=== PATIENT | female | born 1985 | race Caucasian/White ===

== ENCOUNTER 2023-11-20 19:19 | Emergency (ER) | payer OTHER, SELFPAY ==
--- NOTE | ~2023-11-20 | US_ITS ---
Pelvic ultrasound. Clinical History: Pelvic pain, torsion Technique: Realtime transabdominal and transvaginal scanning of the pelvis was performed. Color flow Doppler and Doppler spectral analysis were performed. Findings: The uterus is anteverted. The endometrial stripe has a thickness of 10 mm. No focal mass i s identified. The right ovary measures 3.8 x 3.5 x 3.7 cm. No significant right ovarian or adnexal mass is seen. Left ovary measures approximate 7.9 cm in diameter. There is a 7.2 cm simple cyst occupying the bulk of left ovary with very thin rind of tissue spleen around it. No definite evidence for ovarian torsion. There is no evidence of free fluid in the cul de sac. Impression: No definite evidence of torsion. 7.2 cm simple left ovarian cyst. Follow-up exam in 6-8 weeks recommended. Reviewed, dictated and finalized at [facility]. Impression: No definite evidence of torsion. 7.2 cm simple left ovarian cyst. Follow-up exam in 6-8 weeks recommended.
--- NOTE | ~2023-11-20 | CT_ITS ---
EXAMINATION: CT lumbar spine wo con DATE: 11/20/2023 23:17 INDICATION: Back pain. Right sacroiliac joint pain. TECHNIQUE: Computed tomography (CT) of the lumbar spine was performed without intravenous contrast. A utomated exposure control and iterative reconstruction technique were employed. The dose-length produ ct was 1400.46 mGy-cm. COMPARISON: None FINDINGS: Alignment is normal. Minimal likely physiologic anterior wedging at T12 and L1. Vertebral b luke heights are otherwise normal. Disc heights are normal. There is unfused bilateral transverse proc esses at L1. There are also unfused apophyseal centers at the periphery of the superior articular pro cesses bilaterally at T12. Mild to moderate nonuniform joint space narrowing at the bilateral sacroil iac joints with subchondral sclerosis along the iliac sides of both joint spaces. Suggestion of a tin y erosion at the inferior iliac side of the right sacroiliac joint . Incompletely visualized at least 8 cm cystic lesion in the left hemipelvis. The following disc levels are specifically discussed: T11-T12: There is moderate bilateral facet joint osteoarthritis. There is no neural foraminal stenos is. There is no central canal stenosis. T12-L1: There is moderate bilateral facet joint osteoarthritis. There is no neural foraminal stenosis . There is no central canal stenosis. L1-L2: There is moderate bilateral facet joint osteoarthritis. There is no neural foraminal stenosis . There is no central canal stenosis. L2-L3: There is mild bilateral facet joint osteoarthritis. There is no neural foraminal stenosis. Th ere is no central canal stenosis. L3-L4: Right foraminal zone disc protrusion. There is mild bilateral facet joint osteoarthritis. Ther e is altered left and mild to moderate right neural foraminal stenosis. There is minimal central delfino l stenosis. L4-L5: Suggestion of a central disc protrusion. There is moderate bilateral facet joint osteoarthriti s. There is mild bilateral neural foraminal stenosis. There is mild central canal stenosis. L5-S1: Right foraminal zone disc protrusion. There is bilateral facet joint osteoarthritis. There is mild left and moderate right neural foraminal stenosis. There is no central canal stenosis. IMPRESSION: 1. Mild lumbar spondylosis. 2. Mild to moderate joint space. The posterolateral sacralized joints which could relate osteoarthrit is or inflammatory sacroiliitis. 3. Indeterminate at least 8 cm cystic lesion in the left hemipelvis statistically most likely ovarian origin. Recommend pelvic ultrasound for further evaluation. Reviewed, dictated and finalized at [facility]. IMPRESSION: 1. Mild lumbar spondylosis. 2. Mild to moderate joint space. The posterolateral sacralized joints which cou ld relate osteoarthritis or inflammatory sacroiliitis. 3. Indeterminate at least 8 cm cystic lesion in the left hemipelvis statistical ly most likely ovarian origin. Recommend pelvic ultrasound for further evaluati on.
[2023-11-20 19:24] VITALS: BP 141/110; PULSE 98; RESP 18; TEMP 36.8; O2SAT 100
[2023-11-20 20:13] VITALS: BP 123/67; PULSE 86; RESP 18; TEMP 36.4; O2SAT 98
--- NOTE | 2023-11-20 22:06 | ED.BACK ---
HPI - Back Pain/Injury General Chief Complaint: Back Pain/Injury Stated Complaint: R lower back pain Time Seen by Provider: 11/20/23 21:20 History of Present Illness HPI Narrative: 38-year-old female With a reported history of type 2 diabetes and PCOS presents to emergency department for right lower back pain that started this morning. Patient states she felt a tweak in her low back this morning and throughout the day it got worse after she bent over to pick something Up off of the ground. she is reporting pain to her right lower back that is better when she is lying still and worse when she is moving. She denies radicular symptoms, saddle anesthesia, a urinary or bowel incontinence, urinary tension, fever, vomiting, IV drug use, numbness or tingling. Denies injury trauma or back. states the pain makes her feel nauseous. she took Tylenol ibuprofen approximately 6 hours ago with some improvement. LMP approximately 4 weeks ago. Related Data Allergies Allergy/AdvReac Type Severity Reaction Status Date / Time bismuth subsalicylate Allergy Unknown Unknown Verified 06/03/17 07:16 Review of Systems Review of Systems: All systems reviewed & are unremarkable except as noted in HPI and below Exam Narrative: GENERAL: Well-appearing, well-nourished, and in no acute distress. HEAD: Normocephalic, atraumatic. EYES: PERRLA and EOMI. ENT: Nares clear, no rhinorrhea or epistaxis. Mucous membranes moist. NECK: Supple. BACK: No thoracic spinous tenderness, step-offs or deformities. Tenderness to the lumbar spine without crepitus, step-offs or deformities. Tenderness over the right SI. No overlying skin changes. CHEST: Clear to auscultation. No respiratory distress. HEART: Regular rate and rhythm. No murmur heard. Normal peripheral pulses. ABDOMEN: Soft, nontender, nondistended, normal active bowel sounds. No CVA tenderness EXTREMITIES: Normal range of motion. No edema. BLE strength 5/5. Sensation intact throughout. No saddle anesthesia. SKIN: Warm, dry, no rash. NEURO: No focal deficits. Alert and oriented x3 Course Vital Signs Vital signs: Vital Signs Temperature 98.2 F 11/20/23 19:24 Pulse Rate 98 11/20/23 19:24 Respiratory Rate 18 11/20/23 19:24 Blood Pressure 141/110 H 11/20/23 19:24 Pulse Oximetry 100 11/20/23 19:24 Temperature 97.6 F 11/20/23 20:13 Pulse Rate 84 11/21/23 02:09 Respiratory Rate 17 11/21/23 02:09 Blood Pressure 137/71 11/21/23 02:09 Pulse Oximetry 98 11/21/23 02:09 Oxygen Delivery Room Air 11/20/23 20:13 MDM - Back Pain/Injury MDM Narrative Medical decision making narrative: 38-year-old female presents to emergency department for low back pain since this morning. Triage vital significant for hypertension which has since resolved. Otherwise unremarkable. She is afebrile. Exam significant for tenderness to the lumbar spine and the right SI. She is neurovascularly intact. UA with 11-20 RBCs, no hematuria. Her presentation is not consistent with a kidney stone. is negative. CT lumbar spine shows mild lumbar spondylosis and inflammation to the posterior lateral steak grossly a joints which could relate osteoarthritis or inflammatory sacroiliitis. There is also an indeterminate at least 8 cm cystic lesion in the left hemipelvis which is statistically likely of ovarian origin. Workup discussed with the patient. She received IM Toradol, [place], Flexeril and topical lidocaine patch with some improvement. Given size of ovarian cyst, pelvic ultrasound obtained. Patient is requesting to leave AMA prior to ultrasound results. Unfortunately patient left the department prior to receiving her discharge paperwork and a prescription for her NSAIDs, lidocaine patches and flexeril. She did not have a pharmacy in the system so these could not be sent electronically. Lab Data Labs: Lab Results 11/20/23 11/20/23 Range/Units 22:30 22:33
[2023-11-20] MEDS: CYCLOBENZAPRINE HCL 10 MG TABLET PO (22:16)
[2023-11-20] MEDS: LIDOCAINE 5% PATCH 1 PATCH TRANSDERM (22:17)
[2023-11-20 22:35] LABS: BEDSIDEPREGUCG Negative
[2023-11-20 23:11] LABS: Appearance Urine Cloudy (Clear); Bacteria Urine None Seen /hpf; Bilirubin Urine Negative (Negative); Blood Urine Negative (Negative); Color Urine Yellow (Yellow); Glucose Urine UA Negative (Negative); Ketones Urine Trace mg/dL (Negative); Leukocyte Esterase Ur Negative LEU/UL (Negative); Need Manual Microscopic Reviewed; Nitrate Urine Negative (Negative); Non Pathogenic Casts 0-2; Protein Urine Negative (Negative); Specific Grav Ur 1.033 (1.001-1.035); Squamous Epithelial Cell Urine Few /hpf (Few); Urobilinogen Urine 0.2 mg/dL (<2.0); WBC Urine 0-5 /hpf (0-3); pH Urine 5.5 (5.0-9.0)
[2023-11-20 23:13] LABS: Add Urine Microscopic? YES
[2023-11-21] MEDS: HYDROcodone/acetaminophen (*CRX) 5-325 MG TABLET 1 TAB PO (00:52)
[2023-11-21] MEDS: KETOROLAC 30 MG/ML VIAL (*BKC) IM (00:53)
[2023-11-21 02:09] VITALS: BP 137/71; PULSE 84; RESP 17; O2SAT 98
== END 2023-11-21 02:16 | disposition left against medical advice (07) ==
LOC: ANHED 21:26
PROVIDERS: Emergency Provider Physician Assistant
DX: M53.3 Sacrococcygeal disorders, not elsewhere classified (principal); E28.2 Polycystic ovarian syndrome; E11.9 Type 2 diabetes mellitus without complications; M47.816 Spondylosis without myelopathy or radiculopathy, lumbar region
CPT/HCPCS: 72131; 76830; 76856; 81001; 81025; 96372; 99284; A9270; J1885